=== PATIENT | male | born 1970 | race Caucasian/White ===

== ENCOUNTER 2021-08-30 04:09 | Day surgery (SDC) | payer BC, SELFPAY ==
[2021-08-19 14:10] VITALS: BMI 31.8
[2021-08-30 09:28] VITALS: BP 133/104; PULSE 77; RESP 16; TEMP 36.3; O2SAT 99
[2021-08-30] MEDS: LACTATED RINGERS 1,000 ML 150 ML IV CONT (09:36)
[2021-08-30 09:37] VITALS: BMI 32.2
--- NOTE | 2021-08-30 09:40 | PM.HPGS ---
History of Present Illness History of Present Illness Consent: Risks, benefits, and alternatives have been discussed and questions answered. Patient agrees to proceed with procedure. Chief complaint: neoplasm screening Narrative: Jose Alfredo Dupont is a 51 year old male referred for colon cancer screening Review of Systems Review of Systems: All systems reviewed & are unremarkable except as noted in HPI and below PMFSH Family History Family History Mother Family history of coronary artery disease Social History Social History Smoking status: Never smoker Second hand tobacco smoke exposure: No Alcohol intake: current Drinks per week: 4 Substance use: never Substance use type: does not use Living arrangements: with family Gender identity (if verbalized by the patient): Male Sexual Orientation (if Verbalized by the Patient): Straight or Heterosexual Spiritual care concerns: No Meds Home Medications and Allergies Home Medications Medication Instructions Recorded Confirmed Type No Home Medications 07/19/21 08/19/21 History Allergies Allergy/AdvReac Type Severity Reaction Status Date / Time No Known Allergies Allergy Verified 08/30/21 09:27 Vital Signs Vital Signs - 24 hr 08/30/21 09:28 Temperature 36.3 C L Pulse Rate 77 Respiratory Rate 16 Blood Pressure 133/104 H Pulse Oximetry 99 Exam Resp: Auscultation: clear to auscultation bilaterally Cardio: Rate: regular rate Rhythm: regular rhythm GI: GI Palp: Yes Soft to palpation and No Tenderness to palpation present (GI) Assessment and Plan Assessment and plan (1) Blood in stool: Code(s): K92.1 - Melena Status: Acute Assessment and Plan: EGD with possible biopsy or dilatation or cautery. (2) Colon cancer screening: Code(s): Z12.11 - Encounter for screening for malignant neoplasm of colon Status: Acute Assessment and Plan: Colonoscopy with possible biopsy or polypectomy or cautery or injection of substances.
--- NOTE | 2021-08-30 09:48 | WPDANESEPPF ---
Anes - Initial Pre Proc Eval Procedure: Operation Date: 08/30/21 10:45 Proposed Procedures p Screening Colonoscopy - Jeff Faria MD Date/Time: 08/30/21 09:48 Surgeon: Jeff Faria MD Pre Op Diagnosis: neoplasm screening Patient Data Age: 51 Gender: M Height: 1.75 m Weight: 99 kg Last Vital Signs Temp 36.3 C L 08/30/21 09:28 Pulse 77 08/30/21 09:28 Resp 16 08/30/21 09:28 BP 133/104 H 08/30/21 09:28 Pulse Ox 99 08/30/21 09:28 Allergies Allergy/AdvReac Type Severity Reaction Status Date / Time No Known Allergies Allergy Verified 08/30/21 09:27 Home Medications Medication Instructions Recorded Confirmed Type No Home Medications 07/19/21 08/19/21 History Patient hx anesthesia problems: none Family hx anesthesia problems: none Results Review: All pre-operative results and documents have been reviewed as part of the pre-operative evaluation. [facility] Surgical History Surgical History (Updated 08/30/21 @ 09:51 by Monico Chávez MD) History of appendectomy Family History Family History Mother Family history of coronary artery disease Social History Social History Smoking status: Never smoker Second hand tobacco smoke exposure: No Alcohol intake: current Drinks per week: 4 Substance use: never Substance use type: does not use Living arrangements: with family Gender identity (if verbalized by the patient): Male Sexual Orientation (if Verbalized by the Patient): Straight or Heterosexual Spiritual care concerns: No Anes - Eval Final PreProcedure Day of Procedure 08/30/21 09:48 Patient weight: overweight Heart: regular rate and rhythm Lungs: clear to auscultation Airway: Mallampati scale class II Neurological: alert and oriented Last oral intake: >/= 8 hours ASA classification: II Emergent: no Anesthetic plan: proceed Anesthesia type and monitoring: general GIVS and standard monitoring Results Review: All pre-operative results and documents have been reviewed as part of the pre-operative evaluation. Informed Consent: The patient's anesthetic plan and its attendant risks and benefits were discussed with the patient/family/POA. Questions were solicited and answers provided to the satisfaction of the patient/family/POA.
[2021-08-30 10:52] VITALS: BP 122/90; PULSE 90; RESP 20; O2SAT 100
[2021-08-30 11:02] VITALS: BP 132/93; PULSE 85; RESP 20; O2SAT 97
[2021-08-30 11:12] VITALS: BP 126/91; PULSE 72; RESP 20; O2SAT 100
== END 2021-08-30 11:20 | disposition home or self-care (01) ==
PROVIDERS: PCP Family Medicine; Visit Provider Internal Medicine Gastroenterology
PROC: 0DJD8ZZ Inspection of Lower Intestinal Tract, Via Natural or Artificial Opening Endoscopic (ICD-10-PCS; CPT 45378; principal; 2021-08-30 10:45)
DX: Z12.11 Encounter for screening for malignant neoplasm of colon (principal); K92.1 Melena
CPT/HCPCS: 45378; J2704; J7120